=== PATIENT | male | born 1995 | race Caucasian/White ===

== ENCOUNTER 2020-10-05 19:50 | Emergency (ER) | payer OTHER ==
[~2020-10-05] VITALS: Ht 175.3 cm; Wt 77.3 kg
[2020-10-05 19:57] VITALS: BP 141/97
[2020-10-05] MEDS ORDERED: clindamycin 600mg/D5W 50ml 50 ML IV ONE (20:20)
[2020-10-05] MEDS ORDERED: ondansetron/PF 4mg/2ml inj IV ONE (20:20)
[2020-10-05] MEDS ORDERED: pantoprazole 40 MG vial IV ONE (20:20)
[2020-10-05] MEDS ORDERED: bacitracin 15gm ointment TP ONE (20:20)
[2020-10-05] MEDS ORDERED: famotidine/PF 10 mg/ml inj IV ONE (20:20)
[2020-10-05] MEDS ORDERED: CLIN150C8 PO (20:21)
[2020-10-05] MEDS ORDERED: NEOM30OI17 TOP (20:21)
[2020-10-05] MEDS ORDERED: ONDA4TAB6 PO (20:21)
[2020-10-05] MEDS ORDERED: PANT-47 PO (20:21)
== END 2020-10-05 21:24 | disposition home or self-care (01) ==
LOC: ER 19:51
DX: B08.4 Enteroviral vesicular stomatitis with exanthem (principal); K29.70 Gastritis, unspecified, without bleeding; K21.9 Gastro-esophageal reflux disease without esophagitis; Z98.890 Other specified postprocedural states; Z88.0 Allergy status to penicillin
CPT/HCPCS: 96365; 96375; 99284; C9113; J2405; J3490